=== PATIENT | female | born 1950 | race Caucasian/White ===

== ENCOUNTER 2016-04-26 09:56 | Emergency (ER) | payer OTHER ==
[~2016-04-26 09:56] MED LIST: ASPIRIN 81 MG PO; CALCIUM600 M1; NORCO1 TA1 PO; PAXIL10 MG PO; PROAIR HFA; SIMVASTATIN20 MG; SPIRIVA18 MCG INH; SYMBICORT1 AE1; VITAMIN D-31000 UNIT PO
--- NOTE | 2016-04-26 13:48 | DIAGNOSTIC IMAGING REPORT ---
PROCEDURE: CT ABD/PELVIS WITH CONTRAST INDICATION: Left abdominal pain. Reported history of appendectomy and hysterectomy. TECHNIQUE: 75 ml (one half-dose GFR 59) of Isovue 300 were injected intravenously and axial images were obtained of the entire abdomen and pelvis with sagittal and coronal reformations. COMPARISON: Comparison made to CT abdomen and pelvis on 02/26/2014. FINDINGS: ABDOMEN: Gallbladder, liver (multiple hepatic cysts), spleen, pancreas, and kidneys are normal. Moderate to marked calcified atheromatous changes of the abdominal aorta. Bowel pattern is normal. Postoperative changes and fusion of chronic listhesis of S1, S2. PELVIS: Interim partial sigmoid colectomy with surgical mesh at the rectosigmoid junction. Status post hysterectomy. Uterus and adnexal structures are normal. No evidence of free fluid. IMPRESSION: 1. Moderate to marked calcified atheromatous changes of the aorta. 2. Otherwise negative CT abdomen. 3. Interim partial sigmoid colectomy with normal postoperative appearance. No evidence of diverticulosis or diverticulitis. 4. Status post hysterectomy and reported appendectomy). 5. Status post lower spinal fusion. . 6. Findings discussed with Dr. Obed Timmons All CT scans at this facility use dose modulation, iterative reconstruction, and/or weight-based dosing when appropriate to reduce radiation dose to as low as reasonably achievable.
--- NOTE | 2016-04-26 14:31 | ED ORDER SUMMARY ---
..... Patient: CHARISSE JURADO [facility] VisitID: [id number] [place] [address] 66y, F Registration Date/Time: 04/26/2016 ORDER SHEET Weight: 72.5 kg (stated) Allergies: Advair, Augmenton, Cefzil, Codeine, Eggs or Egg-derived Products, Fresh fruit GENERAL ORDERS: CBC w Diff Urgent (10:04/26/2016 Kathleen HERNANDEZ) (Ack 10:16 LMuller) (10:30 JSimbeck R.N.) CMP Urgent (10:04/26/2016 Kathleen HERNANDEZ) (Ack 10:16 LMuller) (10:30 JSimbeck R.N.) UA-Culture if indicated Urgent (10:04/26/2016 Kathleen HERNANDEZ) (Ack 10:16 JOHNNIEuller) (10:53 JSimbeck R.N.) Amylase Urgent (10:04/26/2016 Kathleen HERNANDEZ) (Ack 10:16 LMuller) (10:30 JSimbeck R.N.) Lipase Urgent (10:04/26/2016 Kathleen HERNANDEZ) (Ack 10:16 LMuller) (10:30 JSimbeck R.N.) CT Abd/Pel w Cont (No) (See report) Urgent (12:16 04/26/2016 Kathleen HERNANDEZ) (Ack 12:17 LMuller) (13:18 [place]) MEDICATION ORDERS: IV FLUIDS: IV Saline Lock (:04/26/2016 Kathleen HERNANDEZ) (10:31 JSimbeck R.N.) ORDER SHEET NOTES: [Electronically signed by Lauren Granda R.N. (17:00 04/26/2016)] [Electronically signed by Obed Timmons MD (18:05 04/26/2016)] [Electronically locked/signed by Lauren Granda R.N. (17:00 04/26/2016)]
--- NOTE | 2016-04-26 14:31 | ED ORDER SUMMARY ---
..... Patient: CHARISSE JURADO OrderSheet [facility] VisitID: [id number] [place] [address] 66y, F Registration Date/Time: 04/26/2016 ORDER SHEET Weight: 72.5 kg (stated) Allergies: Advair, Augmenton, Cefzil, Codeine, Eggs or Egg-derived Products, Fresh fruit GENERAL ORDERS: CBC w Diff Urgent (10:04/26/2016 Kathleen HERNANDEZ) (Ack 10:16 LMuller) (10:30 JSimbeck R.N.) CMP Urgent (10:04/26/2016 Kathleen HERNANDEZ) (Ack 10:16 LMuller) (10:30 JSimbeck R.N.) UA-Culture if indicated Urgent (10:04/26/2016 Kathleen HERNANDEZ) (Ack 10:16 JOHNNIEuller) (10:53 JSimbeck R.N.) Amylase Urgent (10:04/26/2016 Kathleen HERNANDEZ) (Ack 10:16 LMuller) (10:30 JSimbeck R.N.) Lipase Urgent (10:04/26/2016 Kathleen HERNANDEZ) (Ack 10:16 LMuller) (10:30 JSimbeck R.N.) CT Abd/Pel w Cont (No) (See report) Urgent (12:16 04/26/2016 Kathleen HERNANDEZ) (Ack 12:17 LMuller) (13:18 [place]) MEDICATION ORDERS: IV FLUIDS: IV Saline Lock (:04/26/2016 Kathleen HERNANDEZ) (10:31 JSimbeck R.N.) ORDER SHEET NOTES: [Electronically signed by Lauren Granda R.N. (17:00 04/26/2016)] [Electronically signed by Obed Timmons MD (18:05 04/26/2016)] [Electronically locked/signed by Lauren Granda R.N. (17:00 04/26/2016)]
--- NOTE | 2016-04-26 14:31 | ED NURSING NOTES ---
Clinical Report - Nurses [facility] [address] [place] [address] 04/26/2016 9:56 [id number] TRI[facility] Triage time 10:02. Acuity: LEVEL 3. Chief Complaint: ABDOMINAL PAIN and NAUSEA and (Periumbilical lower abd and LLQ pain. Onset 2 weeks ago). 10:14 04/26/16. SEPSIS SCREEN: Sepsis Screen. Negative (no infection suspected/documented). JUANCHO COMA SCORE: Juancho Coma Scale: 15- eyes open spontaneously (4); best verbal response- oriented x 4 (5); best motor response- obeys commands (6). --10:14 Reji Reed R.N. 10:02 04/26/16. BP: 168/96. HR: 97. RR: 20. O2 saturation: 94% on room air. Temp: 98.4 F (oral). Pain level now: 08/29. --10:14 Reji Reed R.N. Weight: 72.5 kg stated. Height/Length: 61 inches Per Patient. BMI: 30.2. --10:11 Reji Reed R.N. Medications ASA Oral 81mg, daily. Calcium 600 + D Oral. PARoxetine HCl Oral (Tablet 20 mg) 1 tablet, daily. Pro air, PRN. Simvastatin Oral (Tablet 20 mg) 1 tablet, daily. Spiriva HandiHaler Inhalation (Capsule 18 mcg) 1 capsule, daily. Symbicort Inhalation (Aerosol 160-4.5 mcg/act) 2 puffs, daily. Vitamin D Oral (Capsule 1000 unit) 1 capsule, daily. --10:09 Reji Reed R.N. Allergies Advair. Augmenton. Cefzil. Codeine. Eggs or Egg-derived Products. Fresh fruit. --10:08 Reji Reed R.N. History Arrived by private vehicle. Historian: patient. Accompanied by family. SOCIAL HX: Heavy tobacco smoker (cigarette)- less than 1 pack per day. No alcohol use or drug use. ABUSE ASSESSMENT: No report of abuse. --10:14 Reji Reed R.N. PROBLEMS: Spina Bifida Occulta. Abdominal Pain. Hypercholesterolemia. Depression. Anxiety Reaction. COPD - Chronic Obstructive Pulmonary Disease. Asthma. --10:10 Reji Reed R.N. ADDITIONAL SURGERIES: . Hysterectomy. Parathyroidectomy. Spinal fusion. Tonsillectomy. --10:10 Reji Reed R.N. Interventions ID band on patient. To treatment room. --10:14 Reji Reed R.N. PHYSICAL ASSESSMENT 10:19 04/26/16. Ambulatory to room. GENERAL / NEURO / PSYCH: Alert. Oriented X 4. Appears in pain. HEENT: Mucous membranes are pink. RESPIRATORY: Respirations not labored. Wheezing present (throughout). CVS: Capillary refill less than 2 seconds. GI / : Abdomen soft. Abdominal tenderness in the periumbilical area, left lower quadrant and lower abdomen. Bowel sounds within normal limits. SKIN: Skin is warm and dry. --10:20 Reji Reed R.N. NURSING PROGRESS NOTES 10:20 04/26/16. Patient gowned. Reassurance given. Two patient identifiers checked. Call light placed in reach. Bed placed in lowest position. Brakes of bed on. Patient ready for evaluation- chart flagged. --10:20 Reji Reed R.N. 10:25 04/26/2016 Site #1 started via IV in the right antecubital space with an 18g angiocath, with aseptic technique and good blood return; one attempt. Blood drawn: rainbow set. Labeled in the presence of the patient and sent to the lab. Saline lock flushed with 10 mL saline. --10:31 Reji Reed R.N. 12:48 04/26/16. BP: 147/80. HR: 80. RR: 20. O2 saturation: 95% on room air. Pain level now: 08/29. --12:49 Reji Reed R.N. 13:15 04/26/16. BP: 151/76. HR: 80. RR: 20. O2 saturation: 96% on room air. --13:51 Reji Reed R.N. DISPOSITION / DISCHARGE Departure time: 16:30 Apr 26 2016. No learning barriers present. Discharge instructions provided and reviewed with the patient and spouse. Reviewed warnings. Reviewed medication(s). Treatments reviewed. Reviewed referrals. Patient verbalized understanding. Written instructions provided in Thai. The patient was discharged home and accompanied by spouse. She left the Emergency Department ambulatory and via private vehicle. Spouse driving. --16:59 Lauren Granda R.N. 16:30 04/26/16. BP: 143/73. HR: 86. RR: 18. O2 saturation: 94%. Temp: 98.4 F. Pain level now: 05/01. --16:59 Lauren Granda R.N. 16:25 04/26/2016 Site #1 removed upon discharge. Catheter intact. Pressure dressing applied. --17:00 Lauren Granda R.N. Locked/Released at 04/26/2016 17:00 by Lauren Granda R.N.
--- NOTE | 2016-04-26 14:31 | ED CLINICAL REPORT ---
Clinical Report - Physicians/Mid Levels [facility] [address] [place] [address] 04/26/2016 9:56 [id number] Time Seen: 10:02. Arrived- By private vehicle. Historian- patient. HISTORY OF PRESENT ILLNESS Chief Complaint: ABDOMINAL PAIN. It is described as "pain" and stabbing and aching. No radiation. It is described as located in the left abdomen and left lower quadrant. At its maximum, severity described as 6 / 10. When seen in the E.D., severity described as 6 / 10. Modifying factors- worsened by movement and walking. Relieved by rest. This started about 2 weeks ago and is still present. It was abrupt in onset and has been constant. The patient has had nausea. She has had loss of appetite (this morning). No vomiting or diarrhea. No recent travel. Similar symptoms previously: REVIEW OF SYSTEMS No chills, fever or sweats. She has had a mild cough productive of scant amounts of clear sputum (chronically). The patient is a smoker. No change in baseline cough. It has been similar to previous symptoms. She has had pain after urination (recently - gone today). She reports normal flatus. All systems otherwise negative, except as recorded above. PAST HISTORY PCP - Josie Surgeon - Janene. Problems: Spina Bifida Occulta. Abdominal Pain. Hypercholesterolemia. Depression. Anxiety Reaction. COPD - Chronic Obstructive Pulmonary Disease. Asthma. Additional Surgeries: Bowel Surgery. . Hernia Repair. Hysterectomy. Parathyroidectomy. Spinal fusion. Tonsillectomy. Medications: ASA Oral 81mg, daily. Calcium 600 + D Oral. PARoxetine HCl Oral (Tablet 20 mg) 1 tablet, daily. Pro air, PRN. Simvastatin Oral (Tablet 20 mg) 1 tablet, daily. Spiriva HandiHaler Inhalation (Capsule 18 mcg) 1 capsule, daily. Symbicort Inhalation (Aerosol 160-4.5 mcg/act) 2 puffs, daily. Vitamin D Oral (Capsule 1000 unit) 1 capsule, daily. Allergies: Advair. Augmenton. Cefzil. Codeine. Eggs or Egg-derived Products. Fresh fruit. SOCIAL HISTORY Current every day heavy tobacco smoker (cigarette)- less than 1 pack per day. No alcohol use or drug use. Is a local resident. She lives with spouse. FAMILY HISTORY Heart disease in first-degree relative (mother); cancer in first-degree relative (father). mother with Parkinson's. ADDITIONAL NOTES The nursing notes have been reviewed. PHYSICAL EXAM Vital Signs: 04/26/2016 10:02 BP: 168/96. HR: 97. RR: 20. O2 saturation: 94%. Temp: 98.4 F. Pain level now: 08/29. Have been reviewed. Appearance: Alert. Eyes: Pupils equal, round and reactive to light. ENT: Pharynx normal. Neck: Normal inspection. Neck supple. CVS: Normal heart rate and rhythm. Heart sounds normal. Respiratory: No respiratory distress. Breath sounds normal. Abdomen: Soft. Mild tenderness in the epigastric area and left upper quadrant. Bowel sounds normal. No organomegaly. No mass. Obese. Back: Normal inspection. No CVA tenderness. Skin: Skin warm and dry. Normal skin color. Normal skin turgor. Extremities: Extremities exhibit normal ROM. No calf tenderness. No lower extremity edema. LABS, X-RAYS, AND EKG Abdominal CT: IMPRESSION: 1. Moderate to marked calcified atheromatous changes of the aorta. 2. Otherwise negative CT abdomen. 3. Interim partial sigmoid colectomy with normal postoperative appearance. No evidence of diverticulosis or diverticulitis. 4. Status post hysterectomy and reported appendectomy). 5. Status post lower spinal fusion. . The study was interpreted contemporaneously by me and discussed with the radiologist. Laboratory Tests: UA-Culture if indicated: (LUKE: 04/26/2016 10:50) ( MsgRcvd 04/26/2016 11:03) Final results Test Result Flag Units (Reference) URINE COLOR YELLOW URINE APPEARANCE CLEAR URINE GLUCOSE NEGATIVE (NEGATIVE) URINE BILIRUBIN NEGATIVE (NEGATIVE) URINE KETONE NEGATIVE (NEGATIVE) URINE SPECIFIC GRAVITY 1.015 (1.010-1.030) URINE PH 7.0 (5.0-8.0) URINE PROTEIN NEGATIVE (NEGATIVE) URINE UROBILINOGEN 0.2 EU/dL (0.2-1.0) URINE NITRITE NEGATIVE (NEGATIVE) URINE BLOOD TRACE-INTACT (NEGATIVE) URINE LEUK ESTERASE NEGATIVE (NEGATIVE) URINE RBC 0-1 rbc/hpf (0-1) URINE WBC RARE wbc/hpf (0-1) URINE EPITHELIAL CELLS 1-3 EPI/hpf (0-5) URINE BACTERIA TRACE (<1+) (NONE SEEN) URINE COMMENT CULT NOT INDICATED URINE CULTURES ARE SET-UP BASED ON THE FOLLOWING CRITERIA:POSITIVE NITRITEPOSITIVE LEUKOCYTE ESTERASEGREATER THAN 10 WHITE BLOOD CELLSMODERATE (2+) OR GREATER BACTERIA CBC w Diff: (LUKE: 04/26/2016 10:25) ( [facility] 04/26/2016 10:37) Final results Test Result Flag Units (Reference) WHITE BLOOD COUNT 7.4 K/uL (4.5-11.5) RED BLOOD COUNT 4.89 M/uL (4.00-5.20) HEMOGLOBIN 14.1 gm/dL (12.0-16.0) HEMATOCRIT 42.7 % (36.0-46.0) MEAN CELL VOLUME 87 fL (80-100) MEAN CORPUSCULAR HGB 29 pg (26-34) MEAN CORPUSCULAR HGB CONC 33 g/dL (31-37) RED CELL DISTRIBUTION WIDTH 13.9 % (11.6-14.8) PLATELET COUNT 269 K/uL (150-400) NEUTROPHIL % 46.7 L % (50-75) LYMPH % 38.4 % (25-40) MONO % 7.4 % (3-14) EOSINOPHIL % 7.0 H % (0-4) BASOPHIL % 0.5 % (0-2) CMP: (LUKE: 04/26/2016 10:25) ( [facility] 04/26/2016 10:54) Final results Test Result Flag Units (Reference) GLUCOSE 95 mg/dL (70-110) BUN 17 mg/dL (7-18) CREATININE 1.0 mg/dL (0.6-1.3) Estimated GFR 58.60 mL/min Estimated GFR- >60 mL/min Note: Persistent reduction over 3 months in eGFR<60 mL/min/1.73 m2 defines CKD. Patients with eGFR values>=60 mL/min/1.73 m2 may also have CKD if evidence ofpersistent proteinuria. Additional information may be foundat www.kidney.org. SODIUM 144 mmol/L (136-145) POTASSIUM 4.0 mmol/L (3.5-5.1) CHLORIDE 106 mmol/L (98-107) CARBON DIOXIDE 28 mmol/L (21-32) CALCIUM 9.2 mg/dL (8.5-10.1) TOTAL PROTEIN 7.4 g/dL (6.4-8.2) ALBUMIN 3.9 g/dL (3.3-5.0) BILIRUBIN, TOTAL 0.5 mg/dL (0.0-1.0) ALKALINE PHOSPHATASE 86 U/L (46-116) AST (SGOT) 19 U/L (15-37) ALT (SGPT) 29 U/L (12-78) LIPASE 167 U/L (73-393) AMYLASE 51 U/L (25-115) . PROGRESS AND PROCEDURES Patient/family counseled. Old medical records reviewed. Disposition: Discharged. Condition: stable. CLINICAL IMPRESSION Abdominal pain of undetermined cause. INSTRUCTIONS Drink plenty of fluids. Warnings: Further evaluation is necessary. GENERAL WARNINGS: Return or contact your physician immediately if your condition worsens or changes unexpectedly, if not improving as expected, or if other problems arise. Your Current Medications: CONTINUE TAKING THE FOLLOWING MEDICATIONS: ASA Oral : 81mg daily. Calcium 600 + D Oral. PARoxetine HCl Oral : Tablet 20 mg, 1 tablet daily. Pro air* : PRN. Simvastatin Oral : Tablet 20 mg, 1 tablet daily. Spiriva HandiHaler Inhalation : Capsule 18 mcg, 1 capsule daily. Symbicort Inhalation : Aerosol 160-4.5 mcg/act, 2 puffs daily. Vitamin D Oral : Capsule 1000 unit, 1 capsule daily. Follow-up: Follow up with a outbound telemarketer- as recommended by your primary care physician. Understanding of the discharge instructions verbalized by patient. Follow-up with: Misha Galindo MD, [facility], , [address] [place] [id number] Follow up tomorrow in one day. Call for the next available appointment. (Electronically signed by Obed Timmons MD 04/26/2016 18:05)
--- NOTE | 2016-04-26 14:31 | ED CLINICAL REPORT ---
Clinical Report - Physicians/Mid Levels [facility] [address] [place] [address] 04/26/2016 9:56 [id number] Time Seen: 10:02. Arrived- By private vehicle. Historian- patient. HISTORY OF PRESENT ILLNESS Chief Complaint: ABDOMINAL PAIN. It is described as "pain" and stabbing and aching. No radiation. It is described as located in the left abdomen and left lower quadrant. At its maximum, severity described as 6 / 10. When seen in the E.D., severity described as 6 / 10. Modifying factors- worsened by movement and walking. Relieved by rest. This started about 2 weeks ago and is still present. It was abrupt in onset and has been constant. The patient has had nausea. She has had loss of appetite (this morning). No vomiting or diarrhea. No recent travel. Similar symptoms previously: REVIEW OF SYSTEMS No chills, fever or sweats. She has had a mild cough productive of scant amounts of clear sputum (chronically). The patient is a smoker. No change in baseline cough. It has been similar to previous symptoms. She has had pain after urination (recently - gone today). She reports normal flatus. All systems otherwise negative, except as recorded above. PAST HISTORY PCP - Josie Surgeon - Janene. Problems: Spina Bifida Occulta. Abdominal Pain. Hypercholesterolemia. Depression. Anxiety Reaction. COPD - Chronic Obstructive Pulmonary Disease. Asthma. Additional Surgeries: Bowel Surgery. . Hernia Repair. Hysterectomy. Parathyroidectomy. Spinal fusion. Tonsillectomy. Medications: ASA Oral 81mg, daily. Calcium 600 + D Oral. PARoxetine HCl Oral (Tablet 20 mg) 1 tablet, daily. Pro air, PRN. Simvastatin Oral (Tablet 20 mg) 1 tablet, daily. Spiriva HandiHaler Inhalation (Capsule 18 mcg) 1 capsule, daily. Symbicort Inhalation (Aerosol 160-4.5 mcg/act) 2 puffs, daily. Vitamin D Oral (Capsule 1000 unit) 1 capsule, daily. Allergies: Advair. Augmenton. Cefzil. Codeine. Eggs or Egg-derived Products. Fresh fruit. SOCIAL HISTORY Current every day heavy tobacco smoker (cigarette)- less than 1 pack per day. No alcohol use or drug use. Is a local resident. She lives with spouse. FAMILY HISTORY Heart disease in first-degree relative (mother); cancer in first-degree relative (father). mother with Parkinson's. ADDITIONAL NOTES The nursing notes have been reviewed. PHYSICAL EXAM Vital Signs: 04/26/2016 10:02 BP: 168/96. HR: 97. RR: 20. O2 saturation: 94%. Temp: 98.4 F. Pain level now: 08/29. Have been reviewed. Appearance: Alert. Eyes: Pupils equal, round and reactive to light. ENT: Pharynx normal. Neck: Normal inspection. Neck supple. CVS: Normal heart rate and rhythm. Heart sounds normal. Respiratory: No respiratory distress. Breath sounds normal. Abdomen: Soft. Mild tenderness in the epigastric area and left upper quadrant. Bowel sounds normal. No organomegaly. No mass. Obese. Back: Normal inspection. No CVA tenderness. Skin: Skin warm and dry. Normal skin color. Normal skin turgor. Extremities: Extremities exhibit normal ROM. No calf tenderness. No lower extremity edema. LABS, X-RAYS, AND EKG Abdominal CT: IMPRESSION: 1. Moderate to marked calcified atheromatous changes of the aorta. 2. Otherwise negative CT abdomen. 3. Interim partial sigmoid colectomy with normal postoperative appearance. No evidence of diverticulosis or diverticulitis. 4. Status post hysterectomy and reported appendectomy). 5. Status post lower spinal fusion. . The study was interpreted contemporaneously by me and discussed with the radiologist. Laboratory Tests: UA-Culture if indicated: (LUKE: 04/26/2016 10:50) ( MsgRcvd 04/26/2016 11:03) Final results Test Result Flag Units (Reference) URINE COLOR YELLOW URINE APPEARANCE CLEAR URINE GLUCOSE NEGATIVE (NEGATIVE) URINE BILIRUBIN NEGATIVE (NEGATIVE) URINE KETONE NEGATIVE (NEGATIVE) URINE SPECIFIC GRAVITY 1.015 (1.010-1.030) URINE PH 7.0 (5.0-8.0) URINE PROTEIN NEGATIVE (NEGATIVE) URINE UROBILINOGEN 0.2 EU/dL (0.2-1.0) URINE NITRITE NEGATIVE (NEGATIVE) URINE BLOOD TRACE-INTACT (NEGATIVE) URINE LEUK ESTERASE NEGATIVE (NEGATIVE) URINE RBC 0-1 rbc/hpf (0-1) URINE WBC RARE wbc/hpf (0-1) URINE EPITHELIAL CELLS 1-3 EPI/hpf (0-5) URINE BACTERIA TRACE (<1+) (NONE SEEN) URINE COMMENT CULT NOT INDICATED URINE CULTURES ARE SET-UP BASED ON THE FOLLOWING CRITERIA:POSITIVE NITRITEPOSITIVE LEUKOCYTE ESTERASEGREATER THAN 10 WHITE BLOOD CELLSMODERATE (2+) OR GREATER BACTERIA CBC w Diff: (LUKE: 04/26/2016 10:25) ( [facility] 04/[facility]37) Final results Test Result Flag Units (Reference) WHITE BLOOD COUNT 7.4 K/uL (4.5-11.5) RED BLOOD COUNT 4.89 M/uL (4.00-5.20) HEMOGLOBIN 14.1 gm/dL (12.0-16.0) HEMATOCRIT 42.7 % (36.0-46.0) MEAN CELL VOLUME 87 fL (80-100) MEAN CORPUSCULAR HGB 29 pg (26-34) MEAN CORPUSCULAR HGB CONC 33 g/dL (31-37) RED CELL DISTRIBUTION WIDTH 13.9 % (11.6-14.8) PLATELET COUNT 269 K/uL (150-400) NEUTROPHIL % 46.7 L % (50-75) LYMPH % 38.4 % (25-40) MONO % 7.4 % (3-14) EOSINOPHIL % 7.0 H % (0-4) BASOPHIL % 0.5 % (0-2) CMP: (LUKE: 04/26/2016 10:25) ( [facility] 04/26/2016 10:54) Final results Test Result Flag Units (Reference) GLUCOSE 95 mg/dL (70-110) BUN 17 mg/dL (7-18) CREATININE 1.0 mg/dL (0.6-1.3) Estimated GFR 58.60 mL/min Estimated GFR- >60 mL/min Note: Persistent reduction over 3 months in eGFR<60 mL/min/1.73 m2 defines CKD. Patients with eGFR values>=60 mL/min/1.73 m2 may also have CKD if evidence ofpersistent proteinuria. Additional information may be foundat www.kidney.org. SODIUM 144 mmol/L (136-145) POTASSIUM 4.0 mmol/L (3.5-5.1) CHLORIDE 106 mmol/L (98-107) CARBON DIOXIDE 28 mmol/L (21-32) CALCIUM 9.2 mg/dL (8.5-10.1) TOTAL PROTEIN 7.4 g/dL (6.4-8.2) ALBUMIN 3.9 g/dL (3.3-5.0) BILIRUBIN, TOTAL 0.5 mg/dL (0.0-1.0) ALKALINE PHOSPHATASE 86 U/L (46-116) AST (SGOT) 19 U/L (15-37) ALT (SGPT) 29 U/L (12-78) LIPASE 167 U/L (73-393) AMYLASE 51 U/L (25-115) . PROGRESS AND PROCEDURES Patient/family counseled. Old medical records reviewed. Disposition: Discharged. Condition: stable. CLINICAL IMPRESSION Abdominal pain of undetermined cause. INSTRUCTIONS Drink plenty of fluids. Warnings: Further evaluation is necessary. GENERAL WARNINGS: Return or contact your physician immediately if your condition worsens or changes unexpectedly, if not improving as expected, or if other problems arise. Your Current Medications: CONTINUE TAKING THE FOLLOWING MEDICATIONS: ASA Oral : 81mg daily. Calcium 600 + D Oral. PARoxetine HCl Oral : Tablet 20 mg, 1 tablet daily. Pro air* : PRN. Simvastatin Oral : Tablet 20 mg, 1 tablet daily. Spiriva HandiHaler Inhalation : Capsule 18 mcg, 1 capsule daily. Symbicort Inhalation : Aerosol 160-4.5 mcg/act, 2 puffs daily. Vitamin D Oral : Capsule 1000 unit, 1 capsule daily. Follow-up: Follow up with a taper printed circuit layout- as recommended by your primary care physician. Understanding of the discharge instructions verbalized by patient. Follow-up with: Misha Galindo MD, [facility], , [address] [place] [phone] Follow up tomorrow in one day. Call for the next available appointment. (Electronically signed by Obed Timmons MD 04/26/2016 18:05)
--- NOTE | 2016-04-26 18:06 | ED MAR SUMMARY ---
..... Medication Administration Record [facility] [address] [place], [place] [id number] Patient: CHARISSE JURADO Visit ID: [id number] 66y, F Weight: 72.5 kg Height/Length: 61 in BMI: 30.2 ALLERGIES: Advair, Augmenton, Cefzil, Codeine, Eggs or Egg-derived Products, Fresh fruit
--- NOTE | 2016-04-26 18:06 | ED DISCHARGE INSTRUCTIONS ---
Patient: CHARISSE JURADO General Instructions [facility] VisitID: [id number] [place] [address] 66y, F Registration Date/Time: 04/26/2016 Abdominal pain of undetermined cause. INSTRUCTIONS Drink plenty of fluids. Warnings: Further evaluation is necessary. GENERAL WARNINGS: Return or contact your physician immediately if your condition worsens or changes unexpectedly, if not improving as expected, or if other problems arise. Your Current Medications: CONTINUE TAKING THE FOLLOWING MEDICATIONS: ASA Oral : 81mg daily. Calcium 600 + D Oral. PARoxetine HCl Oral : Tablet 20 mg, 1 tablet daily. Pro air* : PRN. Simvastatin Oral : Tablet 20 mg, 1 tablet daily. Spiriva HandiHaler Inhalation : Capsule 18 mcg, 1 capsule daily. Symbicort Inhalation : Aerosol 160-4.5 mcg/act, 2 puffs daily. Vitamin D Oral : Capsule 1000 unit, 1 capsule daily. Follow-up: Follow up with a laundry assistant- as recommended by your primary care physician. Understanding of the discharge instructions verbalized by patient. Follow-up with: Misha Galindo MD, [facility], , [address] [place] [address], [place] [id number] Follow up tomorrow in one day. Call for the next available appointment. ADDITIONAL INFORMATION Abdominal Pain, Unknown Cause (Female) The exact cause of your abdominal (stomach) pain is not certain. This does not mean that this is something to worry about, or the right tests were not done. Everyone likes to know the exact cause of the problem, but sometimes with abdominal pain, there is no clear-cut cause, and this could be a good thing. The good news is that your symptoms can be treated, and you will feel better. Your condition does not seem serious now; however, sometimes the signs of a serious problem may take more time to appear. For this reason,it is important for you to watch for any new symptoms, problems,or worsening of your condition. Over the next few days, the abdominal pain may come and go, or be continuous. Other common symptoms can include nausea and vomiting. Sometimes it can be difficult to tell if you feel nauseous, you may just feel bad and not associate that feeling with nausea. Constipation, diarrhea, and a fever may go along with the pain. The pain may continue even if treated correctly over the following days. Depending on how things go, sometimes the cause can become clear and may require further or different treatment. Additional evaluations, medications, or tests may be needed. Home care Your health care provider may prescribe medications for pain, symptoms, or an infection. Follow the health care provider's instructions for taking these medications. General care Rest until your next exam. No strenuous activities. Try to find positions that ease discomfort. A small pillow placed on the abdomen may help relieve pain. Something warm on your abdomen (such as a heating pad) may help, but be careful not to burn yourself. Diet Do not force yourself to eat, especially if having cramps, vomiting, or diarrhea. Water is important so you do not get dehydrated. Soup may also be good. Sports drinks may also help, especially if they are not too acidic. Make sure you don't drink sugary drinks as this can make things worse. Take liquids in small amounts. Do not guzzle them. Caffeine sometimes makes the pain and cramping worse. Avoid dairy products if you have vomiting or diarrhea. Don't eat large amounts at a time. Wait a few minutes between bites. Eat a diet low in fiber (called a low-residue diet). Foods allowed include refined breads, white rice, fruit and vegetable juices without pulp, tender meats. These foods will pass more easily through the intestine. Avoid whole-grain foods, whole fruits and vegetables, meats, seeds and nuts, fried or fatty foods, dairy, alcohol and spicy foods until your symptoms go away. Follow-up care Follow up with your health care provider as instructed, or if your pain does not begin to improve in the next 24 hours. When to seek medical care Seek prompt medical care if any of the following occur: Pain gets worse or moves to the right lower abdomen New or worsening vomiting or diarrhea Swelling of the abdomen Unable to pass stool for more than three days Fever of 100.4F (38C) or higher, or as directed by your healthcare provider. Blood in vomit or bowel movements (dark red or black color) Jaundice (yellow color of eyes and skin) Weakness, dizziness Chest, arm, back, neck or jaw pain Unexpected vaginal bleeding or missed period Call 911 Call emergency services if any of the following occur: Trouble breathing Confusion Fainting or loss of consciousness Rapid heart rate Seizure You have been given the following additional information: Abdominal Pain, Unknown Cause, (Female) (Electronically signed by Obed Timmons MD 04/26/2016 18:05)
--- NOTE | 2016-04-26 18:06 | ED MED RECONCILIATION SUMMARY ---
Patient: CHARISSE JURADO Medication Reconciliation Report [facility] VisitID: [id number] [address] [place] [address] 66y, F Registration Date/Time: 04/26/2016 Weight: 72.5 kg Height/Length: 61 in. BMI: 30.2 ALLERGIES: Advair, Augmenton, Cefzil, Codeine, Eggs or Egg-derived Products, Fresh fruit The patient's Home Medications are listed below: CONTINUE TAKING THE FOLLOWING MEDICATIONS: ASA Oral 81mg, daily Calcium 600 + D Oral PARoxetine HCl Oral (20 mg) 1 tablet, daily Pro air, PRN Simvastatin Oral (20 mg) 1 tablet, daily Spiriva HandiHaler Inhalation (18 mcg) 1 capsule, daily Symbicort Inhalation (160-4.5 mcg/act) 2 puffs, daily Vitamin D Oral (1000 unit) 1 capsule, daily The source(s) of the original Home Medication information: Not obtained. The following Medications were given to the patient in the Emergency Department: None. The following Medications were prescribed to the patient: None.
--- NOTE | 2016-04-26 18:06 | ED DISCHARGE INSTRUCTIONS ---
Patient: CHARISSE JURADO General Instructions [facility] VisitID: [id number] [place] [address] 66y, F Registration Date/Time: 04/26/2016 Abdominal pain of undetermined cause. INSTRUCTIONS Drink plenty of fluids. Warnings: Further evaluation is necessary. GENERAL WARNINGS: Return or contact your physician immediately if your condition worsens or changes unexpectedly, if not improving as expected, or if other problems arise. Your Current Medications: CONTINUE TAKING THE FOLLOWING MEDICATIONS: ASA Oral : 81mg daily. Calcium 600 + D Oral. PARoxetine HCl Oral : Tablet 20 mg, 1 tablet daily. Pro air* : PRN. Simvastatin Oral : Tablet 20 mg, 1 tablet daily. Spiriva HandiHaler Inhalation : Capsule 18 mcg, 1 capsule daily. Symbicort Inhalation : Aerosol 160-4.5 mcg/act, 2 puffs daily. Vitamin D Oral : Capsule 1000 unit, 1 capsule daily. Follow-up: Follow up with a radio communication coordinator- as recommended by your primary care physician. Understanding of the discharge instructions verbalized by patient. Follow-up with: Misha Galindo MD, [facility], , [address] [place] [address], [place] [address] Follow up tomorrow in one day. Call for the next available appointment. ADDITIONAL INFORMATION Abdominal Pain, Unknown Cause (Female) The exact cause of your abdominal (stomach) pain is not certain. This does not mean that this is something to worry about, or the right tests were not done. Everyone likes to know the exact cause of the problem, but sometimes with abdominal pain, there is no clear-cut cause, and this could be a good thing. The good news is that your symptoms can be treated, and you will feel better. Your condition does not seem serious now; however, sometimes the signs of a serious problem may take more time to appear. For this reason,it is important for you to watch for any new symptoms, problems,or worsening of your condition. Over the next few days, the abdominal pain may come and go, or be continuous. Other common symptoms can include nausea and vomiting. Sometimes it can be difficult to tell if you feel nauseous, you may just feel bad and not associate that feeling with nausea. Constipation, diarrhea, and a fever may go along with the pain. The pain may continue even if treated correctly over the following days. Depending on how things go, sometimes the cause can become clear and may require further or different treatment. Additional evaluations, medications, or tests may be needed. Home care Your health care provider may prescribe medications for pain, symptoms, or an infection. Follow the health care provider's instructions for taking these medications. General care Rest until your next exam. No strenuous activities. Try to find positions that ease discomfort. A small pillow placed on the abdomen may help relieve pain. Something warm on your abdomen (such as a heating pad) may help, but be careful not to burn yourself. Diet Do not force yourself to eat, especially if having cramps, vomiting, or diarrhea. Water is important so you do not get dehydrated. Soup may also be good. Sports drinks may also help, especially if they are not too acidic. Make sure you don't drink sugary drinks as this can make things worse. Take liquids in small amounts. Do not guzzle them. Caffeine sometimes makes the pain and cramping worse. Avoid dairy products if you have vomiting or diarrhea. Don't eat large amounts at a time. Wait a few minutes between bites. Eat a diet low in fiber (called a low-residue diet). Foods allowed include refined breads, white rice, fruit and vegetable juices without pulp, tender meats. These foods will pass more easily through the intestine. Avoid whole-grain foods, whole fruits and vegetables, meats, seeds and nuts, fried or fatty foods, dairy, alcohol and spicy foods until your symptoms go away. Follow-up care Follow up with your health care provider as instructed, or if your pain does not begin to improve in the next 24 hours. When to seek medical care Seek prompt medical care if any of the following occur: Pain gets worse or moves to the right lower abdomen New or worsening vomiting or diarrhea Swelling of the abdomen Unable to pass stool for more than three days Fever of 100.4F (38C) or higher, or as directed by your healthcare provider. Blood in vomit or bowel movements (dark red or black color) Jaundice (yellow color of eyes and skin) Weakness, dizziness Chest, arm, back, neck or jaw pain Unexpected vaginal bleeding or missed period Call 911 Call emergency services if any of the following occur: Trouble breathing Confusion Fainting or loss of consciousness Rapid heart rate Seizure You have been given the following additional information: Abdominal Pain, Unknown Cause, (Female) (Electronically signed by Obed Timmons MD 04/26/2016 18:05)
--- NOTE | 2016-04-26 18:06 | ED MAR SUMMARY ---
..... Medication Administration Record [facility] [address] [place], [place] [id number] Patient: CHARISSE JURADO Visit ID: [id number] 66y, F Weight: 72.5 kg Height/Length: 61 in BMI: 30.2 ALLERGIES: Advair, Augmenton, Cefzil, Codeine, Eggs or Egg-derived Products, Fresh fruit
--- NOTE | 2016-04-26 18:06 | ED MED RECONCILIATION SUMMARY ---
Patient: CHARISSE JURADO Medication Reconciliation Report [facility] VisitID: [id number] [address] [place] [address] 66y, F Registration Date/Time: 04/26/2016 Weight: 72.5 kg Height/Length: 61 in. BMI: 30.2 ALLERGIES: Advair, Augmenton, Cefzil, Codeine, Eggs or Egg-derived Products, Fresh fruit The patient's Home Medications are listed below: CONTINUE TAKING THE FOLLOWING MEDICATIONS: ASA Oral 81mg, daily Calcium 600 + D Oral PARoxetine HCl Oral (20 mg) 1 tablet, daily Pro air, PRN Simvastatin Oral (20 mg) 1 tablet, daily Spiriva HandiHaler Inhalation (18 mcg) 1 capsule, daily Symbicort Inhalation (160-4.5 mcg/act) 2 puffs, daily Vitamin D Oral (1000 unit) 1 capsule, daily The source(s) of the original Home Medication information: Not obtained. The following Medications were given to the patient in the Emergency Department: None. The following Medications were prescribed to the patient: None.
== END 2016-04-26 16:30 | disposition home or self-care (01) ==
LOC: ED SRH 09:56
DX: R10.32 Left lower quadrant pain (principal); E78.00 Pure hypercholesterolemia, unspecified; Z79.82 Long term (current) use of aspirin; Z79.51 Long term (current) use of inhaled steroids; Z88.5 Allergy status to narcotic agent; Z91.018 Allergy to other foods; Z91.012 Allergy to eggs; Z88.1 Allergy status to other antibiotic agents; F17.210 Nicotine dependence, cigarettes, uncomplicated
CPT/HCPCS: 90004; 90100; 92235; 92530; 95059